=== PATIENT | female | born 1995 ===

== ENCOUNTER 2017-02-24 09:32 | Inpatient (IN) | payer BC ==
[2017-02-24] MEDS ORDERED: Sodium Chloride 0.9% 1,000 ML IV ONE (10:14)
[2017-02-24] MEDS ORDERED: Sodium Chloride 0.9% 1,000 ML ONE ×2 (10:42→15:24)
--- NOTE | 2017-02-24 10:44 | C.PDOC ---
History Of Present Illness 22 year old female presents to ED for evaluation of diffuse abdominal pain, and blood in the vomit for the past few days. pt reports vomiting "lots of blood" Pt complaints of sore throat for the past 3 days. Denies fever, diarrhea, blood in stool, or other complaints. Time Seen by Provider: 02/24/17 10:05 Chief Complaint (Nursing): Abdominal Pain History Per: Patient History/Exam Limitations: no limitations Onset/Duration Of Symptoms: Days Current Symptoms Are (Timing): Still Present Location Of Pain/Discomfort: Diffuse Radiation Of Pain To:: None Quality Of Discomfort: "Pain" Associated Symptoms: Vomiting. denies: Fever, Chills, Loss Of Appetite, Back Pain, Chest Pain Exacerbating Factors: None Alleviating Factors: None Recent travel outside of the [place]: No Additional History Per: Patient Abnormal Vaginal Bleeding: No Past Medical History Reviewed: Historical Data, Nursing Documentation, Vital Signs Vital Signs: Last Vital Signs Temp 98.5 F 02/26/17 07:20 Pulse 68 02/26/17 08:00 Resp 17 02/26/17 07:20 BP 101/62 02/26/17 07:20 Pulse Ox 100 02/26/17 13:08 Family History: States: Unknown Family Hx - Social History Hx Alcohol Use: No Hx Substance Use: No Review Of Systems Except As Marked, All Systems Reviewed And Found Negative. Constitutional: Negative for: Fever, Chills ENT: Positive for: Throat Pain. Negative for: Nose Discharge, Nose Congestion Respiratory: Negative for: Cough, Shortness of Breath Gastrointestinal: Positive for: Vomiting, Abdominal Pain, Hematemesis. Negative for: Diarrhea, Melena, Hematochezia Genitourinary: Negative for: Dysuria, Frequency, Hematuria Musculoskeletal: Negative for: Back Pain Physical Exam - Physical Exam Appears: Non-toxic, No Acute Distress Skin: Normal Color, Warm, Dry Head: Atraumatic, Normacephalic Eye(s): bilateral: Normal Inspection Ear(s): Bilateral: Normal Nose: Normal Oral Mucosa: Moist Throat: Erythema (mild), No Exudate, No Drooling Neck: Normal ROM, Supple Cardiovascular: Rhythm Regular, No Murmur Respiratory: Normal Breath Sounds, No Rales, No Rhonchi, No Wheezing Gastrointestinal/Abdominal: Soft, Tenderness (mild non-focal, diffuse), No Guarding, No Rebound Rectal: Other (minimal stool) Back: No CVA Tenderness Extremity: Normal ROM, No Pedal Edema, No Deformity Neurological/Psych: Oriented x3, Normal Speech ED Course And Treatment - Laboratory Results Result Diagrams: 02/26/17 07:30 02/26/17 07:30 O2 Sat by Pulse Oximetry: 100 (RA) Pulse Ox Interpretation: Normal Medical Decision Making Medical Decision Making: ro gi bleed Plan: Blood work Urinalysis Rapid strep Protonix, Zofran, IV fluids Reassess and dispo pt reassesesed: abd soft in nad. h/h stable. guiac neg, minimal stool in vault. dr infante accepts for gi eval. Disposition - Disposition Disposition: HOSPITALIZED Disposition Time: 01:00 Condition: STABLE - Clinical Impression Clinical Impression: GI bleed - Scribe Statement The provider has reviewed the documentation as recorded by the Scribe Roman Raya All medical record entries made by the Scribe were at my direction and personally dictated by me. I have reviewed the chart and agree that the record accurately reflects my personal performance of the history, physical exam, medical decision making, and the department course for this patient. I have also personally directed, reviewed, and agree with the discharge instructions and disposition. Decision To Admit - Pt Status Changed To: Hospital Disposition Of: Inpatient - Admit Certification Admit to Inpatient:: After my assessment, the patient will require hospitalization for at least two midnights. This is because of the severity of symptoms shown, intensity of services needed, and/or the medical risk in this patient being treated as an outpatient. - InPatient: Physician Admission Certification:: gi bleed - . Bed Request Type: Telemetry Admitting Physician: Alexx Infante Patient Diagnosis: GI bleed
[2017-02-24 10:54] LABS: HCG,QUALITATIVE URINE NEGATIVE (NEGATIVE)
[2017-02-24 10:55] LABS: BASO # 0.1 K/uL (0.0-0.2); BASO % 0.9 % (0.0-2.0); EOS # 0.1 K/uL (0.0-0.7); EOS % 0.9 % (0.0-4.0); HEMOGLOBIN 11.7 g/dL (11.0-16.0); LYMPH # 1.7 K/uL (1.0-4.3); LYMPH % 15.6 % (20.0-40.0); MEAN CELL VOLUME 82.7 fL (81.0-99.0); MEAN CORPUSCULAR HEMOGLOBIN 27.6 pg (27.0-31.0); MEAN CORPUSCULAR HGB CONC 33.3 g/dL (33.0-37.0); MEAN PLATELET VOLUME 9.5 fL (7.2-11.7); MONO # 0.6 K/uL (0.0-0.8); MONO % 5.3 % (0.0-10.0); NEUT # 8.2 K/uL (1.8-7.0); NEUT % 77.3 % (50.0-75.0); RBC 4.24 Mil/uL (3.80-5.20); RED CELL DISTRIBUTION WIDTH 14.8 % (11.5-14.5); WHITE BLOOD COUNT 10.6 K/uL (4.8-10.8)
[2017-02-24 11:01] LABS: SQUAMOUS EPITHIAL 5 /hpf (0-5); URINE BACTERIA RARE (<OCC); URINE BILIRUBIN NEGATIVE (NEGATIVE); URINE BLOOD 1+ (NEGATIVE); URINE CLARITY Clear (Clear); URINE COLOR Yellow (YELLOW); URINE GLUCOSE (UA) NORMAL (Normal); URINE LEUKOCYTE ESTERASE 1+ Leu/uL (Negative); URINE NITRATE NEGATIVE (NEGATIVE); URINE PROTEIN NEGATIVE (NEGATIVE)
[2017-02-24 11:03] LABS: INR 1.1
[2017-02-24 11:07] LABS: ALB/GLOB RATIO 1.2 (1.0-2.1); ALBUMIN 4.4 g/dL (3.5-5.0); CALCIUM 8.7 mg/dl (8.6-10.4); GFR AFRICAN-AMERICAN > 60; GFR NON-AFRICAN AMERICAN > 60; LIPASE 80 U/L (23-300)
[2017-02-24 11:09] LABS: ALT/SGPT 26 U/L (9-52); AST/SGOT 29 U/L (14-36); BLOOD UREA NITROGEN 6 mg/dL (7-17)
[2017-02-24] MEDS ORDERED: Iodixanol 320 MG/ML 100 ML BOTTLE IV ONE (12:03)
--- NOTE | 2017-02-24 13:44 | CT ---
PROCEDURE: CT scan abdomen pelvis dated 02/24/2017. HISTORY: Abdominal pain. GI bleed. COMPARISON: No prior study available for comparison TECHNIQUE: Contiguous axial images of the abdomen and pelvis performed following intravenous injection of approximately 100 cc Visipaque 320 contrast material. . Coronal and Sagittal reformats generated. Radiation dose: Total exam DLP = 241.21 mGy-cm. This CT exam was performed using one or more of the following dose reduction techniques: Automated exposure control, adjustment of the mA and/or kV according to patient size, and/or use of iterative reconstruction technique. FINDINGS: LOWER THORAX: Lung bases clear. No infiltrate effusion or basilar pneumothorax. . Heart size within range of normal. No significant pericardial effusion. LIVER: The liver exhibits some normal size measuring nearly 615 cm in CC dimension. There appears to be very mild diffuse fatty hepatic infiltration. No obvious hepatic mass collection or calcification. The portal and splenic veins are opacified. GALLBLADDER AND BILE DUCTS: Gallbladder is physiologically distended. No evidence of intraluminal gallbladder calculi. PANCREAS: Appears grossly unremarkable without masses collections or calcifications. No significant pancreatic ductal dilatation. . No mass. No ductal dilatation. SPLEEN: Spleen exhibits normal size measuring approximately 8.7 cm in AP dimension. No splenic masses, collections or calcifications. ADRENALS: No adrenal lesions are identified. KIDNEYS AND URETERS: Kidneys demonstrate symmetric nephrograms. No evidence of nephrolithiasis or hydronephrosis. BLADDER: Urinary bladder appears incompletely distended which may account for slight thick-walled appearance. Cystitis cannot be completely excluded though on likely. REPRODUCTIVE: The uterus appears unremarkable however there does appear to be a small amount of free fluid in the right aspect of the cul de sac. . Very tiny APPENDIX: What is felt to represent normal appendix is best seen on coronal series 72- 89. No obvious periappendiceal inflammatory changes. BOWEL: Evaluation of the bowel is limited due to the lack of oral contrast material. The stomach is incompletely distended which presumably accounts for slight thick-walled appearance. Possibility of a gastritis not excluded. Visualized loops of small bowel exhibit normal contour and caliber. No evidence of acute mechanical small bowel obstruction. The stool and air seen throughout the large bowel. No definitive evidence of mural wall thickening. PERITONEUM: Small amount of free fluid within the cul de sac has as above. No gross free intraperitoneal air. LYMPH NODES: Unremarkable. No enlarged lymph nodes. VASCULATURE: Unremarkable. No aortic aneurysm. BONES: Minor degenerative endplate changes lower thoracic region no acute compression fractures no retropulsed fragments OTHER FINDINGS: None. IMPRESSION: There is a small amount of free fluid seen within the right aspect of the cul de sac nonspecific.
[2017-02-24] MEDS ORDERED: Acetaminophen 650mg/20.3ml solution UD PO STA (14:01)
[2017-02-24] MEDS ORDERED: Acetaminophen 650mg/20.3ml solution UD ONE (14:12)
--- NOTE | 2017-02-24 14:53 | CP.PCM.PN ---
Subjective - Date & Time of Evaluation Date of Evaluation: 02/24/17 Time of Evaluation: 14:49 - Subjective Subjective: PGY2 Note for Dr. Mitchell's Service: Patient is a 22 year old female with no significant past medical history who presents to the hospital with complaint of hematemesis every morning for one week's duration. She states that at first vomit was blood streaked but then she noticed more bright red blood in the vomit with dark clots. Patient states after vomiting she has stomach pain and feels faint. Patient denies loss of consciousness. Patient reports 12 pound unintentional weight loss from September to February. She states she went to her curriculum director for evaluation and was referred to gynecology as she was also amenorrheic during this time period. Patient states that she was told cause of her amenorrhea was related to recent past use of depo shot for control and that they would continue to monitor her weight loss. Patient states that she was also told she had some type of cyst (patient cannot recall if ovarian.) Patient states that in the past few weeks she has been able to gain weight, approximately 7 pounds. Patient reports she can tolerate solid food and liquids. Patient also admits to easy bruising and weakness. Patient denies diarrhea or constipation, denies hematochezia. Patient admits to alternating hot flashes and chills but denies fever. Patient denies recent travel or sick contacts. Patient denies dysuria or hematuria. PMD: [facility] Allergies: denies PMHs: ovarian cyst PSHx: denies FamHx: Maternal grandmother with colon cancer; maternal grandfather with prostate cancer, diabetes; maternal uncles with CAD, diabetes, thyroid dysfunction; cousin with brain tumor Social Hx: denies tobacco, alcohol, drugs; lives with mother Objective - Vital Signs/Intake and Output Vital Signs (last 24 hours): Temp Pulse Resp BP Pulse Ox 98.5 F 66 16 110/75 100 02/24/17 13:57 02/24/17 13:57 02/24/17 13:57 02/24/17 13:57 02/24/17 13:57 - Medications Medications: Current Medications Acetaminophen (Tylenol 325mg Tab) 650 mg PO Q6 PRN PRN Reason: Pain, Mild (1-3) Sodium Chloride (Sodium Chloride 0.9%) 1,000 mls @ 100 mls/hr IV .Q10H [facility] Ondansetron HCl (Zofran Inj) 4 mg IVP Q6H PRN PRN Reason: Nausea/Vomiting Pantoprazole Sodium (Protonix Inj) 40 mg IVP DAILY LB - Labs Labs: 02/24/17 10:50 02/24/17 10:50 PT 13.0 SECONDS (9.7-12.2) H 02/24/17 10:50 INR 1.1 02/24/17 10:50 APTT 22 SECONDS (21-34) 02/24/17 10:50 - Constitutional Appears: Non-toxic, No Acute Distress - Head Exam Head Exam: ATRAUMATIC, NORMOCEPHALIC - Eye Exam Eye Exam: EOMI - ENT Exam ENT Exam: Mucous Membranes Moist Additional comments: mildly enlarged tonsils bilaterally - Respiratory Exam Respiratory Exam: Clear to Ausculation Bilateral, NORMAL BREATHING PATTERN - Cardiovascular Exam Cardiovascular Exam: +S1, +S2 - GI/Abdominal Exam GI & Abdominal Exam: Soft, Normal Bowel Sounds. absent: Distended, Firm, Guarding, Tenderness - Rectal Exam Rectal Exam: NORMAL INSPECTION. absent: Bloody Stool - Extremities Exam Extremities Exam: Normal Inspection. absent: Calf Tenderness, Pedal Edema - Neurological Exam Neurological Exam: Alert, Awake, Oriented x3 - Psychiatric Exam Psychiatric exam: Normal Affect, Normal Mood - Skin Skin Exam: Dry, Warm Assessment and Plan - Assessment and Plan (Free Text) Assessment: Hematemesis stool occult blood negative if patient vomits while in hospital, will check for occult blood CT Abd/ Pelvis: small amount of free fluid in right cul de sac- non-specific lipase 80 will keep patient NPO except for medications zofran 4mg IVP q4prn protonix IVP 40mg daily tylenol prn abdominal pain NS at 100cc/h GI consult, Dr. Page- help appreciated Weight loss will check thyroid studies will continue to monitor Microscopic hematuria 1+ blood on UA patient asymptomatic will check urine culture Prophylaxis patient to be NPO except for meds SCDs holding chemical anticoagulation for hematemesis All medical management as per Dr. Mitchell
[2017-02-24] MEDS: Sodium Chloride 0.9% 1,000 ML IV SCH (15:25)
[2017-02-24 19:19] LABS: BASO # 0.1 K/uL (0.0-0.2); BASO % 0.6 % (0.0-2.0); EOS # 0.1 K/uL (0.0-0.7); LYMPH % 24.2 % (20.0-40.0); MEAN CELL VOLUME 83.1 fL (81.0-99.0); MEAN CORPUSCULAR HEMOGLOBIN 27.4 pg (27.0-31.0); MEAN CORPUSCULAR HGB CONC 32.9 g/dL (33.0-37.0); MEAN PLATELET VOLUME 9.1 fL (7.2-11.7); MONO # 0.6 K/uL (0.0-0.8); MONO % 7.5 % (0.0-10.0); NEUT # 5.4 K/uL (1.8-7.0); NEUT % 66.7 % (50.0-75.0); RBC 4.01 Mil/uL (3.80-5.20); RED CELL DISTRIBUTION WIDTH 14.3 % (11.5-14.5); WHITE BLOOD COUNT 8.2 K/uL (4.8-10.8)
[2017-02-25] MEDS: Sodium Chloride 0.9% 1,000 ML IV SCH ×3 (00:53→21:41)
[2017-02-25 06:41] LABS: ALB/GLOB RATIO 1.1 (1.0-2.1); ALBUMIN 3.3 g/dL (3.5-5.0); ALT/SGPT 17 U/L (9-52); AST/SGOT 25 U/L (14-36); BLOOD UREA NITROGEN 4 mg/dL (7-17); CALCIUM 8.1 mg/dl (8.6-10.4); GFR AFRICAN-AMERICAN > 60; GFR NON-AFRICAN AMERICAN > 60
[2017-02-25 06:52] LABS: BASO # 0.1 K/uL (0.0-0.2); BASO % 0.9 % (0.0-2.0); EOS # 0.1 K/uL (0.0-0.7); EOS % 1.9 % (0.0-4.0); HEMOGLOBIN 10.9 g/dL (11.0-16.0); LYMPH # 1.6 K/uL (1.0-4.3); LYMPH % 23.9 % (20.0-40.0); MEAN CORPUSCULAR HEMOGLOBIN 27.2 pg (27.0-31.0); MEAN CORPUSCULAR HGB CONC 32.7 g/dL (33.0-37.0); MEAN PLATELET VOLUME 9.2 fL (7.2-11.7); MONO # 0.4 K/uL (0.0-0.8); MONO % 6.4 % (0.0-10.0); NEUT # 4.5 K/uL (1.8-7.0); NEUT % 66.9 % (50.0-75.0); RBC 4.01 Mil/uL (3.80-5.20); RED CELL DISTRIBUTION WIDTH 14.2 % (11.5-14.5); WHITE BLOOD COUNT 6.7 K/uL (4.8-10.8)
[2017-02-25 06:53] LABS: T4 8.97 ug/dL (5.5-11.0)
--- NOTE | 2017-02-25 12:18 | CP.PCM.CON ---
History of Present Illness - History of Present Illness History of Present Illness: COVERING DR MCKEON/ARSLAN 22 yo female admitted with one week h/o multiple episodes of hematemesis. Patient with witnessed episode of bright red blood in emesis basin. Denies pain , ASA, NSAID or Etoh abuse. No heartburn. No prior h/o PUD, gastritis. Being followed by PCP for an ovarian cyst that has reduced in size according to patient. No melena or BRBPR. No CP, SOB, LOC or dizziness. Drop in hbg by one gram since admission as well with mild anemia. Review of Systems - Cardiovascular Cardiovascular: absent: As Per HPI, Acrocyanosis, Chest Pain, Chest Pain at Rest , Chest Pain with Activity, Claudication, Diaphoresis, Dyspnea, Dyspnea on Exertion, Edema, Irregular Heart Rhythm, Pain Radiating to Arm/Neck/Jaw, Leg Edema, Leg Ulcers, Lightheadedness, Orthopnea, Palpitations, Paroxysmal Nocturnal Dyspnea, Pedal Edema, Radiating Pain, Rapid Heart Rate, Slow Heart Rate, Syncope, Other - Respiratory Respiratory: absent: As Per HPI, Cough, Dyspnea, Hemoptysis, Dyspnea on Exertion , Wheezing, Snoring, Stridor, Pain on Inspiration, Chest Congestion, Excessive Mucous Production, Change in Mucous Color, Pain with Coughing, Other - Gastrointestinal Gastrointestinal: As Per HPI - Genitourinary Genitourinary: absent: As Per HPI, Change in Urinary Stream, Difficulty Urinating, Dysuria, Flank Pain, Hematuria, Pyuria, Nocturia, Urinary Incontinence, Urinary Frequency, Urinary Hesitance, Urinary Urgency, Voiding Freq/Small Amts, Freq UTI, Hx Renal/Bladder Calculi, Hx /Renal Surgery, Bladder Distension, Other - Reproductive: Female Reproductive:Female: As Per HPI Past Patient History - Past Medical History & Family History Past Medical History?: No - Past Social History Smoking Status: Never Smoked Chewing Tobacco Use: No Cigar Use: No Alcohol: None Drugs: Denies Home Situation {Lives}: With Family - CARDIAC Hx Cardiac Disorders: No - PULMONARY Hx Respiratory Disorders: No - NEUROLOGICAL Hx Neurological Disorder: No - HEENT Hx HEENT Problems: No - RENAL Hx Chronic Kidney Disease: No - ENDOCRINE/METABOLIC Hx Endocrine Disorders: No - HEMATOLOGICAL/ONCOLOGICAL Hx Blood Disorders: No Hx Cirrhosis: No Hx Hepatitis A: No Hx Hepatitis B: No Hx Hepatitis C: No Hx Human Immunodeficiency Virus (HIV): No - MUSCULOSKELETAL/RHEUMATOLOGICAL Hx Falls: No - GASTROINTESTINAL Hx Gastrointestinal Disorders: No Hx Bowel Surgery: No Hx Clostridium Difficile: No Hx Colitis: No Hx Colostomy: No Hx Constipation: No Hx Crohn's Disease: No Hx Diarrhea: No Hx Diverticulitis: No Hx Esophageal Varices: No Hx Fatty Liver Disease: No Hx Gall Bladder Disease: No Hx Gastritis: No Hx Gastroesophageal Reflux: No Hx Hemorrhoids: No Hx Ileostomy: No Hx Irritable Bowel: No Hx Liver Failure: No Hx Nausea: No Hx Pancreatitis: No HX Swallowing Problems: No Hx Ulcer: No Hx Vomiting: Yes - PSYCHIATRIC Hx Physical Abuse: No Hx Substance Use: No - SURGICAL HISTORY Hx Surgeries: No - ANESTHESIA Hx Anesthesia: No Meds Allergies/Adverse Reactions: Allergies Allergy/AdvReac Type Severity Reaction Status Date / Time No Known Allergies Allergy Unverified 02/24/17 09:40 - Medications Medications: Current Medications Acetaminophen (Tylenol 325mg Tab) 650 mg PO Q6 PRN PRN Reason: Pain, Mild (1-3) Last Admin: 02/24/17 20:04 Dose: 650 mg Sodium Chloride (Sodium Chloride 0.9%) 1,000 mls @ 100 mls/hr IV .Q10H [facility] Last Admin: 02/25/17 10:32 Dose: 100 mls/hr Ondansetron HCl (Zofran Inj) 8 mg IVP Q6H PRN PRN Reason: Nausea/Vomiting Pantoprazole Sodium (Protonix Inj) 40 mg IVP DAILY [facility] Last Admin: 02/25/17 10:26 Dose: 40 mg Pneumococcal Polyvalent Vaccine (Pneumovax 23 Vaccine) 0.5 ml IM .ONCE ONE Stop: 02/26/17 10:01 Physical Exam - Constitutional Appears: No Acute Distress - Head Exam Head Exam: ATRAUMATIC, NORMOCEPHALIC - Eye Exam Eye Exam: EOMI, PERRL - Respiratory Exam Respiratory Exam: NORMAL BREATHING PATTERN - Cardiovascular Exam Cardiovascular Exam: REGULAR RHYTHM - GI/Abdominal Exam GI & Abdominal Exam: Normal Bowel Sounds, Soft. absent: Guarding, Mass, Organomegaly, Rigid, Tenderness - Rectal Exam Rectal Exam: Deferred - Extremities Exam Extremities exam: Positive for: normal inspection - Neurological Exam Neurological exam: Alert, Oriented x3 - Skin Skin Exam: Dry, Warm Results - Vital Signs Recent Vital Signs: Last Vital Signs Temp 98.2 F 02/24/17 23:10 Pulse 65 02/25/17 08:00 Resp 20 02/24/17 23:10 BP 103/61 02/24/17 23:10 Pulse Ox 98 02/24/17 23:10 - Labs Result Diagrams: 02/25/17 06:12 02/25/17 06:12 Labs: Laboratory Results - last 24 hr 02/24/17 02/25/17 02/25/17 19:15 06:12 06:12 WBC 8.2 6.7 RBC 4.01 4.01 Hgb 11.0 10.9 L Hct 33.4 L 33.3 L MCV 83.1 83.0 MCH 27.4 27.2 MCHC 32.9 L 32.7 L RDW 14.3 14.2 Plt Count 191 202 MPV 9.1 9.2 Neut % (Auto) 66.7 66.9 Lymph % (Auto) 24.2 23.9 [place] % (Auto) 7.5 6.4 Eos % (Auto) 1.0 1.9 Baso % (Auto) 0.6 0.9 Neut # 5.4 4.5 Lymph # 2.0 1.6 [place] # 0.6 0.4 Eos # 0.1 0.1 Baso # 0.1 0.1 Sodium 133 Potassium 3.9 Chloride 105 Carbon Dioxide 22 Anion Gap 10 BUN 4 L Creatinine 0.6 L Est GFR ( Amer) > 60 Est GFR (Non-Af Amer) > 60 Random Glucose 74 Calcium 8.1 L Total Bilirubin 1.5 H AST 25 ALT 17 Alkaline Phosphatase 76 Total Protein 6.4 Albumin 3.3 L D Globulin 3.0 Albumin/Globulin Ratio 1.1 Thyroxine (T4) 8.97 TSH 3rd Generation 0.95 Assessment & Plan (1) Hematemesis/vomiting blood Assessment and Plan: Patient with one week h/o recurrent hematemesis and drop in H/H. r/o MWT ( though no nausea and bilious emesis), PUD, gastritis with bleeding, Acid reflux disease or other etiology. IV PRotonix EGD to be arranged for today as patient is NPO. As hematemesis has continued too unstable to be discharged for out patient work up at this time. IV fluids Status: Acute (2) Acute blood loss anemia Assessment and Plan: as above Status: Acute
[2017-02-25] MEDS ORDERED: Lactated Ringer's 1,000 ML IV ONE ×3 (13:33→14:29)
[2017-02-25] MEDS ORDERED: Succinylcholine Chloride 20 mg/ml Syr (5 ml) IV ONE (13:38)
[2017-02-25] MEDS ORDERED: Lidocaine Hydrochloride 5 ML INJ ONE (13:38)
[2017-02-25] MEDS ORDERED: Propofol 10 mg/ml Inj (20 ML) ONE (13:38)
[2017-02-25] MEDS ORDERED: Midazolam 2 MG/2 ML VIAL ONE (13:38)
--- NOTE | 2017-02-25 14:02 | CP.PCM.PN ---
Subjective - Date & Time of Evaluation Date of Evaluation: 02/25/17 Time of Evaluation: 13:59 - Subjective Subjective: EGD: See full operative report No gastritis, ulcer, fresh or old blood seen. Superficial Margo-Dexetr Tear appreciable at GE junction about 1cm in length and no residual SRH. May have already been healing from emesis this am due to PPI therapy. Rec/ Advance diet as tolerated IV Protonix today Discharge tomorrow if stable on Protonix or Omeprazole BID for two weeks. Outpatient follow up with Dr Alfredo advised or with me (as she has never seen him before) Objective - Vital Signs/Intake and Output Vital Signs (last 24 hours): Temp Pulse Resp BP Pulse Ox 98.3 F 100 H 20 106/60 97 02/25/17 13:15 02/25/17 13:15 02/25/17 13:15 02/25/17 13:15 02/25/17 13:15 Intake and Output: 02/25/17 02/25/17 06:59 18:59 Intake Total 1300 Balance 1300 - Medications Medications: Current Medications Acetaminophen (Tylenol 325mg Tab) 650 mg PO Q6 PRN PRN Reason: Pain, Mild (1-3) Last Admin: 02/24/17 20:04 Dose: 650 mg Sodium Chloride (Sodium Chloride 0.9%) 1,000 mls @ 100 mls/hr IV .Q10H [facility] Last Admin: 02/25/17 10:32 Dose: 100 mls/hr Ondansetron HCl (Zofran Inj) 8 mg IVP Q6H PRN PRN Reason: Nausea/Vomiting Pantoprazole Sodium (Protonix Inj) 40 mg IVP Q12H [facility] Pneumococcal Polyvalent Vaccine (Pneumovax 23 Vaccine) 0.5 ml IM .ONCE ONE Stop: 02/26/17 10:01 - Labs Labs: 02/25/17 06:12 02/25/17 06:12 PT 13.0 SECONDS (9.7-12.2) H 02/24/17 10:50 INR 1.1 02/24/17 10:50 APTT 22 SECONDS (21-34) 02/24/17 10:50 Assessment and Plan (1) Hematemesis/vomiting blood Status: Acute (2) Acute blood loss anemia Status: Acute
[2017-02-26 00:55] VITALS: TEMP 98.5
[2017-02-26 07:46] LABS: BASO % 0.5 % (0.0-2.0); EOS # 0.1 K/uL (0.0-0.7); EOS % 1.2 % (0.0-4.0); LYMPH # 1.5 K/uL (1.0-4.3); MEAN CELL VOLUME 82.1 fL (81.0-99.0); MEAN CORPUSCULAR HEMOGLOBIN 27.5 pg (27.0-31.0); MEAN CORPUSCULAR HGB CONC 33.5 g/dL (33.0-37.0); MEAN PLATELET VOLUME 8.7 fL (7.2-11.7); MONO # 0.5 K/uL (0.0-0.8); MONO % 7.8 % (0.0-10.0); NEUT # 4.7 K/uL (1.8-7.0); NEUT % 68.5 % (50.0-75.0); RBC 4.01 Mil/uL (3.80-5.20); RED CELL DISTRIBUTION WIDTH 14.3 % (11.5-14.5); WHITE BLOOD COUNT 6.9 K/uL (4.8-10.8)
[2017-02-26 08:02] LABS: ALB/GLOB RATIO 1.2 (1.0-2.1); ALBUMIN 3.6 g/dL (3.5-5.0); ALT/SGPT 24 U/L (9-52); AST/SGOT 20 U/L (14-36); BLOOD UREA NITROGEN 2 mg/dL (7-17); CALCIUM 8.4 mg/dl (8.6-10.4); GFR AFRICAN-AMERICAN > 60; GFR NON-AFRICAN AMERICAN > 60
[2017-02-26] MEDS: Sodium Chloride 0.9% 1,000 ML IV SCH (08:30)
[2017-02-26 08:47] VITALS: BP 101/62; RESP 17
[2017-02-26 09:12] VITALS: PULSE 68
[2017-02-26] MEDS ORDERED: Pneumococcal 23-Valent Vaccine IM ONE (10:00)
--- NOTE | 2017-02-26 12:13 | CP.PCM.PN ---
Subjective - Date & Time of Evaluation Date of Evaluation: 02/26/17 Time of Evaluation: 12:10 - Subjective Subjective: No further N/V or bleeding. NO pain and toleating diet H/H stable Objective - Vital Signs/Intake and Output Vital Signs (last 24 hours): Temp Pulse Resp BP Pulse Ox 98.5 F 68 17 101/62 97 02/26/17 07:20 02/26/17 08:00 02/26/17 07:20 02/26/17 07:20 02/26/17 07:20 Intake and Output: 02/26/17 02/26/17 06:59 18:59 Intake Total 1220 800 Balance 1220 800 - Medications Medications: Current Medications Acetaminophen (Tylenol 325mg Tab) 650 mg PO Q6 PRN PRN Reason: Pain, Mild (1-3) Last Admin: 02/24/17 20:04 Dose: 650 mg Sodium Chloride (Sodium Chloride 0.9%) 1,000 mls @ 100 mls/hr IV .Q10H [facility] Last Admin: 02/26/17 08:30 Dose: 100 mls/hr Ondansetron HCl (Zofran Inj) 8 mg IVP Q6H PRN PRN Reason: Nausea/Vomiting Pantoprazole Sodium (Protonix Ec Tab) 40 mg PO BID LB - Labs Labs: 02/26/17 07:30 02/26/17 07:30 PT 13.0 SECONDS (9.7-12.2) H 02/24/17 10:50 INR 1.1 02/24/17 10:50 APTT 22 SECONDS (21-34) 02/24/17 10:50 - Constitutional Appears: No Acute Distress - Head Exam Head Exam: ATRAUMATIC, NORMOCEPHALIC - Eye Exam Eye Exam: EOMI, PERRL - Respiratory Exam Respiratory Exam: NORMAL BREATHING PATTERN - Cardiovascular Exam Cardiovascular Exam: REGULAR RHYTHM, +S1 - GI/Abdominal Exam GI & Abdominal Exam: Soft, Normal Bowel Sounds. absent: Distended, Guarding, Tenderness, Mass, Rebound - Extremities Exam Extremities Exam: Normal Inspection - Back Exam Back Exam: NORMAL INSPECTION Assessment and Plan (1) Hematemesis/vomiting blood Assessment & Plan: No further episodes Status: Acute (2) Acute blood loss anemia Assessment & Plan: stable Status: Acute (3) Margo-Dexter tear Assessment & Plan: Advance diet to regular Continue PPI bid for two weeks and D/C Follow up with Dr Alfredo as needed in two weeks. He is well know to and requested by her family. Stable for discharge today, discussed with Dr Todd at bedside. Status: Acute
[2017-02-26 13:09] VITALS: O2SAT 100
[2017-02-26] MEDS ORDERED: Pantoprazole 40 mg EC Tab PO SCH (18:00)
--- NOTE | 2017-02-27 07:51 | HP ---
HISTORY OF PRESENT ILLNESS: Ms. Carrington is 22-year-old female, chief complaint weakness, fatigue, tiredness, abdominal pain, hematemesis. The patient came to the ER, was advised admission. The patient is nonsmoker, no drinker. PHYSICAL EXAMINATION: GENERAL: The patient is awake, alert, oriented. VITAL SIGNS: Temperature 98, pulse 92. HEENT: Within normal limits. NECK: Supple. CHEST: Symmetrical. HEART: Regular. ABDOMEN: Soft. EXTREMITIES: No edema. IMPRESSION: Patient suffers from gastrointestinal bleeding. PLAN: The patient gets bed rest, supportive care, IV Protonix. GI consult. Alexx Mitchell MD
[2017-02-27] MEDS ORDERED: Influenza Vaccine 60 mcg/0.5 mL SYR (4YR UP) IM ONE (10:00)
== END 2017-02-26 14:17 | disposition home or self-care (01) | DRG 369 ==
LOC: C.ER 09:32 → C.6T 13:52 → C.9E 13:52
PROVIDERS: ADMIT Internal Medicine Pulmonary Disease; ATTEND Internal Medicine Pulmonary Disease
PROC: 0DJ08ZZ Inspection of Upper Intestinal Tract, Via Natural or Artificial Opening Endoscopic (ICD-10-PCS; principal; 2017-02-25 01:30)
DX: K22.6 Gastro-esophageal laceration-hemorrhage syndrome (principal); D62 Acute posthemorrhagic anemia; R31.29 Other microscopic hematuria